=== PATIENT | female | born 1985 | race Caucasian/White ===

== ENCOUNTER 2022-08-19 17:22 | Emergency (ER) | payer OTHER ==
[2022-08-19] MEDS ORDERED: Sodium Chloride 0.9% 1,000 ML IV STA (17:53)
[2022-08-19] MEDS ORDERED: HYDROmorphone 0.5 MG/0.5 ML Syringe IVPUSH ONE ×3 (17:53→19:17)
[2022-08-19] MEDS ORDERED: Ondansetron 4 MG/2 ML SDV IVPUSH ONE ×2 (17:53→19:17)
[2022-08-19] MEDS: Sodium Chloride 0.9% 10 ML Syringe FLUSH PRN ×2 (18:00→19:16)
[2022-08-19 18:19] LABS: ESTIMATED GFR 67 mL/min (>60)
[2022-08-19] MEDS ORDERED: Iopamidol 755 Mg/ML 100 ML Bottle IVPUSH ONE (19:05)
[2022-08-19] MEDS ORDERED: Sodium Chloride 0.9% 10 ML Syringe FLUSH ONE (19:05)
[2022-08-19] MEDS ORDERED: Polyethylene Glycol 3350 Powder 17 GM Packet PO ONE (20:26)
[2022-08-19] MEDS ORDERED: Dicyclomine 10 MG Cap PO ONE (20:30)
== END 2022-08-19 21:00 | disposition home or self-care (01) ==
LOC: JD.ED 17:22
DX: R10.84 Generalized abdominal pain (principal); Z88.0 Allergy status to penicillin; Z98.890 Other specified postprocedural states
CPT/HCPCS: 36415; 74177; 80053; 81001; 84703; 85025; 86140; 96361; 96374; 96375; 96376; 99284; A9270; J1170; J2405; J3490; J7030; Q9967